=== PATIENT | female | born 1970 | race Caucasian/White ===

== ENCOUNTER 2022-02-11 12:34 | Outpatient (CLI) | payer OTHER, SELFPAY ==
--- NOTE | 2022-02-11 13:00 | CRLHL7_ITS ---
For Patients: As a result of the Cures Act, medical imaging exams and procedure reports are released immediately into your electronic medical record. You may view this report before your referring provider. If you have questions, please contact your health care provider. BILATERAL SCREENING MAMMOGRAM WITH COMPUTER-AIDED DETECTION AND TOMOSYNTHESIS TECHNIQUE: CC and MLO views were obtained. These mammographic images have been obtained using full-field digital technique. These mammographic images were interpreted with the benefit of computer-aided detection. Breast Tomosynthesis was used in this interpretation. COMPARISON FILM: 06/20/20, 02/22/19, 01/07/17. FINDINGS: The breasts are heterogeneously dense, which may obscure small masses. Stable BILATERAL retropectoral breast implants. IMPRESSION: There is no radiographic evidence for malignancy. ASSESSMENT: BI-RADS Category 2: Benign RECOMMENDATION: Routine screening mammogram in 1 year. A lay language report of this examination will be provided to the patient. John Mascorro M.D. Diagnostic/Nuclear Medicine Radiologist [email or web address] BO:[email or web address] Transcribed: 10:44 a.m. PT/Dictated by: John Mascorro MD @ 02/12/2022 8:34:00 AM (Electronically Signed)
== END 2022-02-11 12:35 | disposition home or self-care (01) ==
LOC: MAMMO 12:35
PROVIDERS: PCP Family Medicine; Visit Provider Family Medicine
DX: Z12.31 Encounter for screening mammogram for malignant neoplasm of breast (principal); R92.2 Inconclusive mammogram
CPT/HCPCS: 77063; 77067

== ENCOUNTER 2022-06-26 09:45 | Outpatient (CLI) | payer OTHER, SELFPAY | END 2022-06-26 09:46 | disposition home or self-care (01) | PROVIDERS: PCP Family Medicine; Visit Provider Family Medicine | DX: R07.89 Other chest pain (principal) | CPT/HCPCS: 80053; 83880; 85379 ==

== ENCOUNTER 2022-07-01 12:43 | Outpatient (CLI) | payer OTHER, SELFPAY ==
[2022-07-01 13:36] VITALS: BP 128/80; PULSE 99
--- NOTE | 2022-07-01 14:33 | W.PM.STED ---
Stress Test Note Date Date of test: 07/01/22 Providers Primary care provider: Andi Hernandez Stress test physician: Ankit Myles Stress Test Note Stress test ordered: Stress Echo Indication for test: Chest pain Results discussion: Patient is a very nice 51-year-old female who presents for the above test, she was initially scheduled for a regular stress test, was changed to a stress echo cause this with the initial test that they wanted to get. We did have a cancellation. Discussion the risks benefits and side effects of this were done patient would like to proceed pretest EKG shows normal sinus rhythm with a ventricular rate of 74 and a blood pressure 108/70, no acute ST wave changes are noted. Cardiac stress test medical history form is reviewed. Following standard [facility] protocol patient is exercised for a total time of 12 minutes 41 seconds, her maximum heart rate was 155 which is 109% of the maximum, maximum blood pressure 150 and 86. She did not have any chest pain she had some mild fatigue. Test is terminated because of fulfillment of protocol, during this test there is mild ST wave changes, these were indeterminate, primarily seen in V3 and V4, V5, of 2 mm. I suspect given the high workload that these would translate to a false-positive, correlation with the echo findings is suggested. Impression: Indeterminate electrographic changes, and a lady who exercised to a high workload. Suspect that this is normal. Follow up suggested: Await echo images clinical correlation with this will be needed, patient left this testing facility in excellent condition.
== END 2022-07-01 12:44 | disposition home or self-care (01) ==
LOC: STRESS 12:43
PROVIDERS: PCP Family Medicine; Visit Provider Family Medicine
DX: R07.9 Chest pain, unspecified (principal); I34.0 Nonrheumatic mitral (valve) insufficiency; I35.1 Nonrheumatic aortic (valve) insufficiency; R06.00 Dyspnea, unspecified; R11.0 Nausea; R68.89 Other general symptoms and signs
CPT/HCPCS: 93016; 93325; 93351

== ENCOUNTER 2022-07-10 15:49 | Outpatient (CLI) | payer OTHER, SELFPAY ==
--- NOTE | 2022-07-10 16:00 | CRLHL7_ITS ---
For Patients: As a result of the Century Cures Act, medical imaging exams and procedure reports are released immediately into your electronic medical record. You may view this report before your referring provider. If you have questions, please contact your health care provider. Indication: dyspnea on exertion Technique: Precontrast and postcontrast CT chest. 75 cc Isovue 370 intravenous contrast. High-resolution supine inspiratory series also acquired. Please note that all CT scans at this facility use dose modulation, iterative reconstruction, and/or weight-based dosing when appropriate to reduce radiation dose to as low as reasonably achievable. Comparison: None Findings: Noncontrast enhanced images demonstrate no evidence of granulomatous disease. No calcifications within the vascular structures. Postcontrast enhanced images demonstrate no evidence of aortic dissection or aneurysm. No pulmonary embolism. The upper abdomen normal. No adenopathy. Visualized thyroid normal. Bilateral breast implants intact. Mild dependent atelectasis in both lower lobes. No pulmonary fibrosis. Abnormal interstitial markings. No nodules. No pleural or pericardial effusions. 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 Impression: Mild dependent atelectasis in both lower lobes without pulmonary fibrosis or airspace disease. No adenopathy or pulmonary embolism. No granulomatous disease. Please note that all CT scans at this facility use dose modulation, iterative reconstruction, and/or weight-based dosing when appropriate to reduce radiation dose to as low as reasonably achievable. Dictated by Steven Khan MD @ 07/13/2022 8:19:29 PM (Electronically Signed)
== END 2022-07-10 15:50 | disposition home or self-care (01) ==
LOC: CT 15:50
PROVIDERS: PCP Family Medicine; Visit Provider Family Medicine
DX: R06.09 Other forms of dyspnea (principal); I35.8 Other nonrheumatic aortic valve disorders
CPT/HCPCS: 71270; Q9967

== ENCOUNTER 2023-07-07 13:25 | Outpatient (CLI) | payer OTHER, SELFPAY ==
--- NOTE | 2023-07-07 13:40 | MM_ITS ---
Patient: RADHA PAUL Facility:?[facility] Patient ID:?[id number] Site Patient ID:?[id number]. Site :?[id number] Study:?XRay-Breast Bilateral 3D W/CAD-07/07/2023 2:13:58 PM Ordering Physician:Mauri Final Report: BILATERAL SCREENING MAMMOGRAM WITH COMPUTER-AIDED DETECTION AND TOMOSYNTHESIS TECHNIQUE: CC, MLO and Implant displaced views were obtained. These mammographic images have been obtained using full-field digital technique. These mammographic images were interpreted with the benefit of computer-aided detection. Breast Tomosynthesis was used in this interpretation. COMPARISON FILM: 02/11/22, 06/20/20, 02/22/19. FINDINGS: The breasts are extremely dense, which lowers the sensitivity of mammography. IMPRESSION: There is no radiographic evidence for malignancy. ASSESSMENT: BI-RADS Category 2: Benign RECOMMENDATION: Routine screening mammogram in 1 year. A lay language report of this examination will be provided to the patient. Steven Khan M.D. Diagnostic Radiologist [email or web address] DSM/sp R& Transcribed: 6:25 p.m. SP/Dictated by: Steven Khan MD @ 07/09/2023 9:54:00 AM Signed by:?Steven Khan MD @07/10/2023 11:26:33 AM (Electronic Signature)
== END 2023-07-07 13:26 | disposition home or self-care (01) ==
LOC: MAMMO 13:26
PROVIDERS: PCP Nurse Practitioner Family; Visit Provider Nurse Practitioner Family
DX: Z12.31 Encounter for screening mammogram for malignant neoplasm of breast (principal); R92.2 Inconclusive mammogram
CPT/HCPCS: 77063; 77067

== ENCOUNTER 2023-08-11 13:46 | Outpatient (CLI) | payer OTHER, SELFPAY | END 2023-08-11 13:47 | disposition home or self-care (01) | PROVIDERS: PCP Nurse Practitioner Family; Visit Provider Nurse Practitioner Family | DX: G25.81 Restless legs syndrome (principal) | CPT/HCPCS: 82728; 83540; 83550; 85025 ==

== ENCOUNTER 2024-07-18 11:54 | Outpatient (CLI) | payer OTHER, SELFPAY ==
[2024-07-18 14:44] LABS: Strep A DNA Probe* NOT DETECTED (Not Detectd)
== END 2024-07-18 11:55 | disposition home or self-care (01) ==
LOC: KYNREF 11:54
PROVIDERS: PCP Nurse Practitioner Family; Visit Provider Nurse Practitioner Family
DX: J02.9 Acute pharyngitis, unspecified (principal); H92.02 Otalgia, left ear
CPT/HCPCS: 87651